=== PATIENT | male | born 1980 | race African-American/Black ===

== ENCOUNTER 2019-08-15 22:02 | Emergency (ER) | payer SELFPAY ==
[2019-08-15 22:04] VITALS: BP 143/90; PULSE 71; RESP 16; TEMP 36.8; O2SAT 99; BMI 26.4
--- NOTE | 2019-08-15 22:42 | ED.DCSUM_ITS ---
- ER Visit Summary Date of Service: 08/15/19 Chief Complaint: Abscess History of Present Illness: The patient is a 39 M who presents with an abscess to his back that is been getting worse over the past 2 to 3 days. Patient states it feels like it is itching. Patient denies any discharge or drainage. Patient denies any fevers or chills. Patient states he had a similar abscess 1 year ago and his girlfriend was able to open it and drain it at home. Patient states that this has not been able to be drained at home. Physical Examination: Vital signs are stable. Patient is afebrile. Patient is in no acute distress. Skin is warm dry. There is an abscess over the right upper thoracic paraspinal area. There is no discharge or drainage. There is some mild erythema. There is no warmth. There is some mild fluctuance. There is no midline tenderness. There is no bony crepitance or step-off. There is full range of motion. Heart was regular rate and rhythm. Lungs are clear and equal bilateral. Abdomen is soft and nontender. Cranial nerves II through XII are intact. There are no focal motor or sensory deficits. Emergency Department Course and Treatment: The abscess area was cleaned and anesthetized 1% plain lidocaine locally. A #11 blade scalpel was used to make a cruciate incision. Large amount of purulent drainage was expressed. The wound was irrigated. Bacitracin dressing was applied. Patient tolerated the pr ocedure well. Patient was given a dose of doxycycline here. Patient states he does not have any insurance and is unsure if he will be able to afford any prescriptions. Patient was advised that the antibiotic should be something he will be able to afford. Patient was given a prescription for Bactrim. Patient was instructed to follow-up with the [facility]. Patient understood and was agreeable with the plan. All questions were answered. Disposition: Discharge home Impression: Abscess This note was generated with [employer] dictation software. It may contain incorrect words, spelling, and punctuation that were not noted in review of the chart prior to signing ED Disposition - Plan for ED Patient: Disposition: Home or Assisted Living Diagnosis: Abscess Instructions: ED Abscess Incision And Drainage Prescriptions: Smz/Tmp Ds [Bactrim Ds] 1 tab PO BID #14 tab Prescription Printed Referrals: Reno Conway MD [Primary Care Provider] - 5-7 Days Lisha Karimi [NON-STAFF] - 5-7 Days
[2019-08-15] MEDS: Doxycycline 100 MG CAPSULE PO (22:44)
== END 2019-08-15 23:31 | disposition home or self-care (01) ==
PROVIDERS: Emergency Provider Emergency Medicine; PCP Internal Medicine
DX: L02.212 Cutaneous abscess of back [any part, except buttock and flank] (principal); F17.200 Nicotine dependence, unspecified, uncomplicated; K21.9 Gastro-esophageal reflux disease without esophagitis
CPT/HCPCS: 10060; 99283